=== PATIENT | male | born 1980 | race Caucasian/White ===

== ENCOUNTER 2021-01-19 17:47 | Emergency (ER) | payer MEDICAID ==
[~2021-01-19] VITALS: Ht 188 cm; Wt 88.6 kg
[~2021-01-19 17:47] MED LIST: HYDR-4383 PO; IBUP-75 PO; NO HOME MEDS
[2021-01-19] MEDS ORDERED: naloxone 2mg/2ml inj IV ONE (18:05)
[2021-01-19] MEDS ORDERED: normal saline 1000ML IV soln IVB ONE (18:05)
[2021-01-19] MEDS ORDERED: naloxone 2mg/2ml inj ONE (18:41)
[2021-01-19 18:56] LABS: BASOPHILS # (AUTO) 0.1 X10'3 (0-0.2); BASOPHILS % (AUTO) 0.6 % (0-1); EOSINOPHILS % (AUTO) 0.3 % (0-6); HEMATOCRIT 42.9 % (42.0-52.0); HEMOGLOBIN 14.5 g/dl (14.0-17.9); LYMPHOCYTES # (AUTO) 2.3 X10'3 (1.1-4.8); LYMPHOCYTES % (AUTO) 14.9 % (21-51); MEAN CORPUSCULAR HEMOGLOBIN 29.8 PG (27.0-31.0); MEAN CORPUSCULAR HGB CONC 33.8 g/dL (33.0-36.5); MEAN CORPUSCULAR VOLUME 88.3 FL (78-98); MEAN PLATELET VOLUME 8.9 FL (7.4-10.4); MONOCYTES # (AUTO) 1.8 X10'3 (0-0.9); MONOCYTES % (AUTO) 11.9 % (2-12); NEUTROPHILS # (AUTO) 11.1 X10'3 (1.8-7.7); NEUTROPHILS % (AUTO) 72.3 % (42-75); PLATELET COUNT 334 X10'3 (140-440); RED BLOOD COUNT 4.86 X10'6 (4.70-6.10); RED CELL DISTRIBUTION WIDTH 14.7 % (11.5-14.5); WHITE BLOOD COUNT 15.4 X10'3 (4.5-11.0)
[2021-01-19 19:07] LABS: LACTIC SEPSIS 1.4 MMOL/L (0.4-2.0)
[2021-01-19 19:14] LABS: ALANINE AMINOTRANSFERASE 21 U/L (12-78); ALBUMIN 3.5 G/DL (3.4-5.0); ALBUMIN/GLOBULIN RATIO 0.7 (1.1-1.5); ALKALINE PHOSPHATASE 102 IU/L (46-116); ANION GAP 10 (8-16); ASPARTATE AMINO TRANSFERASE 21 U/L (10-37); BILIRUBIN,TOTAL 0.3 MG/DL (0.1-1.0); BLOOD UREA NITROGEN 19 MG/DL (7-18); BUN/CREATININE RATIO 22.1 (5.4-32.0); CALCIUM 8.9 MG/DL (8.5-10.1); CHLORIDE 100 MMOL/L (99-107); CREATININE 0.86 MG/DL (0.60-1.10); ETHANOL < 0.010 GM/DL (0.0-0.010); GLUCOSE 136 MG/DL (70-104); POTASSIUM 3.6 MMOL/L (3.5-5.1); SODIUM 137 MMOL/L (135-145); TOTAL CARBON DIOXIDE 27.4 MMOL/L (24-32); TOTAL PROTEIN 8.4 G/DL (6.4-8.2); TROPONIN I < 0.04 NG/ML (0.0-0.05); eGFR > 90 ML/MIN
[2021-01-19] MEDS ORDERED: magnesium 2GM in 50ml NS 50 ML IV ONE (19:25)
[2021-01-19] MEDS ORDERED: thiamine inj. 100 MG in normal saline 100ml IV soln 99 ML IV ONE (19:25)
[2021-01-19] MEDS ORDERED: levetiracetam-NS 1000mg/100ml 100 ML IV ONE (19:28)
[2021-01-19 19:37] LABS: CLARITY,URINE CLEAR (Clear); COLOR,URINE YELLOW (Yellow); GLUCOSE, URINE NEGATIVE (Neg); KETONES,URINE 15 mg/dl (Neg); LEUKOCYTE ESTERASE ,URINE NEGATIVE (Neg); NITRITES, URINE NEGATIVE (Neg); OCCULT BLOOD,URINE TRACE-LYSED (Neg); PH,URINE 6.5 (4.8-8.0); PROTEIN,URINE TRACE mg/dl (Neg)
[2021-01-19 19:45] LABS: UA COLLECTION TYPE STRAIGHT CATH
[2021-01-19 19:47] LABS: BACTERIA,URINE NONE SEEN /HPF (Neg); RBC,URINE 0-2 /HPF (0-2); WBC,URINE 0-4 /HPF (0-4)
[2021-01-19 19:48] LABS: MUCUS STRANDS FEW /LPF (Neg); SQUAMOUS EPITHELIAL CELL,UR NONE SEEN /LPF (FEW); URINE AMPHETAMINE SCREEN POSITIVE (Neg); URINE BARBITUATE SCREEN NEGATIVE (Neg); URINE BENZODIAZEPINES SCREEN NEGATIVE (Neg); URINE CANNABINOID SCREEN NEGATIVE (Neg); URINE COCAINE SCREEN NEGATIVE (Neg); URINE METHADONE SCREEN NEGATIVE (Neg); URINE OPIATE SCREEN NEGATIVE (Neg); URINE PHENCYCLIDINE SCREEN NEGATIVE (Neg)
[2021-01-19] MEDS ORDERED: niCARDipine-NS 40mg/200ml IVPB 200 ML IV SCH (19:50)
--- NOTE | 2021-01-19 19:52 | NUR ---
PT PULLED OUT IV LINE, WORKING ON NEW ONE
[2021-01-19 20:33] VITALS: BP 204/99
--- NOTE | 2021-01-19 20:48 | NUR ---
REPORT CALLED TO [facility] TO VINCE STANLEY
== END 2021-01-19 20:58 | disposition short-term general hospital (02) ==
LOC: ER 17:48
DX: I61.4 Nontraumatic intracerebral hemorrhage in cerebellum (principal); Z20.822 Contact with and (suspected) exposure to COVID-19; R41.82 Altered mental status, unspecified; R53.1 Weakness; F12.90 Cannabis use, unspecified, uncomplicated; Z98.890 Other specified postprocedural states; Z72.89 Other problems related to lifestyle; Z79.899 Other long term (current) drug therapy
CPT/HCPCS: 36415; 70450; 71045; 80053; 80305; 80320; 81001; 82140; 83605; 84484; 85025; 85610; 87040; 87635; 93005; 96365; 96367; 96375; 99285; C9803; J1953; J2310; J3475; J7030; 96361; 96368

== ENCOUNTER 2021-03-07 12:40 | Emergency (ER) | payer MEDICAID ==
[~2021-03-07] VITALS: Ht 188 cm; Wt 90.9 kg
[2021-03-07 13:38] VITALS: BP 121/87
--- NOTE | 2021-03-07 14:01 | NUR ---
Pt reports neck pain, 05/16, but not currently, saying, "sometimes my neck hurts bad." He purportedly underwent back and/or neck surgery @ [facility] in the winter of 2019, but he can't recall date. Pt observed moving head and all extremities with no notable limitations.
== END 2021-03-07 16:09 | disposition home or self-care (01) ==
LOC: ER 12:41
DX: Z02.89 Encounter for other administrative examinations (principal); S01.90XD Unspecified open wound of unspecified part of head, subsequent encounter; F12.90 Cannabis use, unspecified, uncomplicated; Z98.890 Other specified postprocedural states; Z72.89 Other problems related to lifestyle; Z79.899 Other long term (current) drug therapy; X58.XXXD Exposure to other specified factors, subsequent encounter
CPT/HCPCS: 99281

== ENCOUNTER 2022-04-20 22:57 | Emergency (ER) | payer MEDICAID ==
[~2022-04-20] VITALS: Ht 188 cm; Wt 90.9 kg
[2022-04-20 23:02] VITALS: BP 167/100
[2022-04-21] MEDS ORDERED: acetaminophen 325mg tablet PO ONE (01:15)
[2022-04-21] MEDS ORDERED: ibuprofen tablet 400 MG TABLET PO ONE (01:15)
--- NOTE | 2022-04-21 02:15 | NUR ---
PO MEDS X2 GIVEN
--- NOTE | 2022-04-21 02:29 | NUR ---
PT NOT IN LOBBY FOR LAB DRAW
== END 2022-04-21 05:01 | disposition left against medical advice (07) ==
LOC: ER 22:58
DX: R25.2 Cramp and spasm (principal); F12.90 Cannabis use, unspecified, uncomplicated; Z56.0 Unemployment, unspecified; Z59.00 Homelessness unspecified
CPT/HCPCS: 99283

== ENCOUNTER → 2022-04-20 | Emergency (ER) | payer MEDICAID ==
[~2022-04-20] VITALS: Ht 188 cm; Wt 81.8 kg
[~2022-04-20] MED LIST changes: -IBUP-75 PO; +IBUP-76 PO
[2022-04-20 19:53] VITALS: BP 175/113
== END | disposition left against medical advice (07) ==
LOC: ER 19:28
DX: G47.62 Sleep related leg cramps (principal); Z53.21 Procedure and treatment not carried out due to patient leaving prior to being seen by health care provider

== ENCOUNTER 2023-10-28 10:28 | Emergency (ER) | payer MEDICAID ==
[~2023-10-28] VITALS: Ht 182.9 cm; Wt 91.8 kg
[~2023-10-28 10:28] MED LIST changes: +IBUP-2632 PO; -IBUP-76 PO
[2023-10-28] MEDS ORDERED: ondansetron 4mg rapidly disintigrating tab PO ONE (11:30)
[2023-10-28 13:49] LABS: BASOPHILS # (AUTO) 0.1 X10'3 (0-0.2); BASOPHILS % (AUTO) 0.6 % (0-1); EOSINOPHILS # (AUTO) 0.1 X10'3 (0-0.9); EOSINOPHILS % (AUTO) 0.8 % (0-6); HEMATOCRIT 47.6 % (42.0-52.0); HEMOGLOBIN 15.6 g/dl (14.0-17.9); LYMPHOCYTES # (AUTO) 2.9 X10'3 (1.1-4.8); LYMPHOCYTES % (AUTO) 17.6 % (21-51); MEAN CORPUSCULAR HEMOGLOBIN 29.7 PG (27.0-31.0); MEAN CORPUSCULAR HGB CONC 32.8 g/dL (33.0-36.5); MEAN CORPUSCULAR VOLUME 90.7 FL (78-98); MEAN PLATELET VOLUME 9.7 FL (7.4-10.4); MONOCYTES # (AUTO) 1.5 X10'3 (0-0.9); MONOCYTES % (AUTO) 9.3 % (2-12); NEUTROPHILS # (AUTO) 11.7 X10'3 (1.8-7.7); NEUTROPHILS % (AUTO) 71.7 % (42-75); PLATELET COUNT 156 X10'3 (140-440); RED BLOOD COUNT 5.25 X10'6 (4.70-6.10); WHITE BLOOD COUNT 16.3 X10'3 (4.5-11.0)
[2023-10-28 14:04] VITALS: TEMP 98.1
[2023-10-28 14:05] LABS: ALANINE AMINOTRANSFERASE 15 U/L (12-78); ALBUMIN 3.6 G/DL (3.4-5.0); ALBUMIN/GLOBULIN RATIO 0.9 (1.1-1.5); ALKALINE PHOSPHATASE 87 IU/L (46-116); ANION GAP 12 (8-16); ASPARTATE AMINO TRANSFERASE 18 U/L (10-37); BILIRUBIN,TOTAL 0.5 MG/DL (0.1-1.0); BLOOD UREA NITROGEN 17 MG/DL (7-18); BUN/CREATININE RATIO 21.3 (10.0-20.0); CALCIUM 9.2 MG/DL (8.5-10.1); CHLORIDE 100 MMOL/L (99-107); GLUCOSE 102 MG/DL (70-104); LIPASE 21 U/L (16-77); POTASSIUM 3.9 MMOL/L (3.5-5.1); SODIUM 135 MMOL/L (135-145); TOTAL CARBON DIOXIDE 23.1 MMOL/L (24-32); TOTAL PROTEIN 7.8 G/DL (6.4-8.2); eCRCL 139 ML/MIN; eGFR > 90 ML/MIN
[2023-10-28] MEDS ORDERED: ONDA4TAB12 PO (15:22)
[2023-10-28 15:33] VITALS: BP 155/104; PULSE 64; RESP 18; O2SAT 99
[2023-10-28 16:12] LABS: BILIRUBIN,URINE SMALL (Neg); CLARITY,URINE SLIGHTLY CLOUDY (Clear); COLOR,URINE YELLOW (Yellow); GLUCOSE, URINE NEGATIVE (Neg); KETONES,URINE 40 mg/dl (Neg); LEUKOCYTE ESTERASE ,URINE NEGATIVE (Neg); NITRITES, URINE NEGATIVE (Neg); OCCULT BLOOD,URINE NEGATIVE (Neg); PH,URINE 6.5 (4.8-8.0); PROTEIN,URINE NEGATIVE (Neg); UROBILINOGEN,URINE 0.2 E.U/dL (0.2-1.0)
[2023-10-28 16:14] LABS: UA COLLECTION TYPE CLN CATCH MIDSTREAM
[2023-10-28 16:16] LABS: MUCUS STRANDS MANY /LPF (Neg); SQUAMOUS EPITHELIAL CELL,UR FEW /LPF (FEW)
[2023-10-28 16:17] LABS: BACTERIA,URINE NONE SEEN /HPF (Neg); RBC,URINE 0-2 /HPF (0-2); WBC,URINE 0-4 /HPF (0-4)
== END 2023-10-28 15:39 | disposition home or self-care (01) ==
LOC: ER 10:28
DX: A08.4 Viral intestinal infection, unspecified (principal); F12.90 Cannabis use, unspecified, uncomplicated; Z79.899 Other long term (current) drug therapy; Z79.1 Long term (current) use of non-steroidal anti-inflammatories (NSAID)
CPT/HCPCS: 36415; 80053; 81001; 83690; 85025; 99283

== ENCOUNTER 2024-12-21 10:25 | Emergency (ER) | payer MEDICAID ==
[~2024-12-21] VITALS: Ht 188 cm; Wt 95.5 kg
[~2024-12-21 10:25] MED LIST changes: +ONDA-243 PO
[2024-12-21 10:38] VITALS: BP 119/81; PULSE 92; RESP 15; TEMP 97.8; O2SAT 100
== END 2024-12-21 16:27 | disposition left against medical advice (07) ==
LOC: ER 10:26
DX: K08.89 Other specified disorders of teeth and supporting structures (principal); Z53.21 Procedure and treatment not carried out due to patient leaving prior to being seen by health care provider

== ENCOUNTER 2025-03-12 15:12 | Emergency (ER) | payer MEDICAID ==
[~2025-03-12] VITALS: Ht 188 cm; Wt 97.1 kg
[2025-03-12 15:13] VITALS: BP 133/101; PULSE 84; RESP 16; TEMP 97.9; O2SAT 100
--- NOTE | 2025-03-12 17:53 | Physician Documentation ---
History of Present Illness ~ Chief Complaint: Abscess Stated Complaint: R WRIST PAIN Time Seen by MD: 16:38 Primary Medical Doctor: NONE HPI Patient is seen today with complaints of an abscess developing on his right wrist ulnar aspect just over the ulnar styloid. Patient states it just popped up yesterday and wants it checked out. Patient has no new or other concern or complaint at this time. Patient denies any joint pain and denies any fevers or chills. He has no other concern or complaint at this time. Tetanus Within 5 Years: No (Unsure) Medication Reconciliation Allergies: Coded Allergies: No Known Allergies (Unverified , 03/12/25) Scheduled Hydrocodone/Acetaminophen ([place] 5-325 Tablet), 1-2 TABLET PO Q6H Ibuprofen (Ibuprofen Ib), 800 APPLIC PO Q8 hrs Scheduled PRN ONDANSETRON ODT 4mg tablet (Ondansetron Odt), 1 TAB PO Q6H PRN PRN for nausea/vomiting Miscellaneous Medications Home Med List (No Home Medications), (Reported) Past Medical History Past Medical History: CVA/TIA/Stroke Past Surgical History: orthopedic surgeries, other Patient History: (Cancer) Malignant carcinoid tumor FATHER, Onset:50's - 60 (DM Type 2) Diabetes mellitus type 2 FAMILY/OTHER (PVD) Peripheral vascular disease Alcohol Use: Occasionally Drug Use: marijuana Lives In: Homeless Occupation: unemployed Review of Systems Constitutional: Denies: chills, fever, weakness Eyes: Denies: pain, blurred vision ENT: Denies: ear pain, nose pain, throat pain, mouth pain Respiratory: Denies: cough, shortness of breath Cardiovascular: Denies: chest pain, palpitations Gastrointestinal: Denies: abdominal pain, nausea, vomiting Genitourinary: Denies: burning, dysuria Male Genitalia: Denies: penile discharge, testicular pain Neurological: Denies: headache, dizziness Musculoskeletal: Denies: pain, swelling Integumentary: Denies: rash, lesions Allergic/Immunologic: Denies: hives, itching Hematologic/Lymphatic: Denies: no symptoms reported Psychiatric: Denies: depression, anxiety Physical Exam Vital Signs: Temperature: 97.9, Source: Oral, Heart Rate: 84, Respiratory Rate: 16, BP: 133/101, Pulse Oximetry: 100, Weight: 97.100 Oxygen Flow Rate: 0 Physical Exam General: Awake and Alert, no acute distress. HEENT: Conjunctiva pink, Sclera clear, Mucus Membranes moist. Neck: Supple without masses and tenderness. Resp: Unlabored. Lungs clear to auscultation bilaterally. Heart: Regular Rate and rhythm, normal S1 and S2 without murmur, rub or gallop. Musculoskeletal: Patient on exam does have skin lesion consistent with the abscess with pustule formation and purulent drainage with surrounding induration and erythema of the right upper extremity and located over the olecranon process of the right wrist. I do not appreciate any wrist swelling or joint swelling or tracking up the right arm. Extremities: No cyanosis,clubbing or edema. Skin: Warm and Dry. Progress Results/Orders Results/Orders Vital Signs 03/12/25 15:13 Temp 97.9 Pulse 84 Resp 16 B/P (MAP) 133/101 Pulse Ox 100 O2 Flow Rate 0 Medical Decision Making Findings Patient is seen today with complaints of an abscess developing on his right wrist ulnar aspect just over the ulnar styloid. Patient states it just popped up yesterday and wants it checked out. Patient has no new or other concern or complaint at this time. Patient denies any joint pain and denies any fevers or chills. He has no other concern or complaint at this time. Patient did have incision and drainage of abscess over right wrist ulnar aspect. Patient tolerated well. Patient started on Bactrim DS in the ED tonight. Prescription sent to patient's pharmacy [facility] on [facility] of Bactrim DS one tab by mouth twice a day for 10 days. Patient will follow up with primary care in 2-5 days if no better as needed sooner. Return to ED with any worsening, concerning or changing symptoms. Shared decision-making utilized with the patient today. Departure Disposition: HOME / SELF CARE / HOMELESS Impression: Primary Impression: Abscess Condition: Improved Discharge Instructions: Abscess, Care After, Incision and Drainage Additional Instructions: Patient did have incision and drainage of abscess over right wrist ulnar aspect. Patient tolerated well. Patient started on Bactrim DS in the ED tonight. Prescription sent to patient's pharmacy [facility] on [facility] of Bactrim DS one tab by mouth twice a day for 10 days. Patient will follow up with primary care in 2-5 days if no better as needed sooner. Return to ED with any worsening, concerning or changing symptoms. Shared decision-making utilized with the patient today. Referrals: NO PRIMARY CARE PROVIDER (PCP) Prescriptions Sulfamethoxazole/Trimethoprim (Bactrim Ds Tablet) 800 Mg-160 Mg Tablet 1 TAB PO Q12H for 10 Days, #20 TAB Prov: JOSE DASILVA 03/12/25 Signature Scribe Signature: No scribe Attestation: No scribe JOSE DASILVA PAC Mar 12, 2025 17:53
[2025-03-12] MEDS ORDERED: SULF1TAB49 PO (18:41)
[2025-03-12] MEDS: sulfamethoxazole/trimethoprim DS (800/160mg) tablet PO STA (18:53)
== END 2025-03-12 19:03 | disposition home or self-care (01) ==
LOC: ER 15:13
DX: L02.413 Cutaneous abscess of right upper limb (principal); F12.90 Cannabis use, unspecified, uncomplicated; Z79.899 Other long term (current) drug therapy; Z86.73 Personal history of transient ischemic attack (TIA), and cerebral infarction without residual deficits; Z59.00 Homelessness unspecified; Z56.0 Unemployment, unspecified
CPT/HCPCS: 10060; 99284; A6449

== ENCOUNTER 2025-08-15 08:02 | Emergency (ER) | payer MEDICAID ==
[~2025-08-15] VITALS: Ht 188 cm; Wt 96.0 kg
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
[2025-08-15] MEDS: HYDROcodone/acetaminophen 10/325mg tab PO STA (08:18)
[2025-08-15] MEDS: LIDOcaine 1% W/epiNEPHrine 1:100,000 20ml vial IJ STA (08:19)
--- NOTE | 2025-08-15 08:49 | RADIOLOGY REPORT ---
CLINICAL INFORMATION: 45 years old, Male; ELBOW PAIN. TECHNIQUE: 3 views of the left elbow were obtained. COMPARISON: None FINDINGS: No acute fracture or dislocation. Small ossific density adjacent to the lateral epicondyle near the expected origin of the common extensor tendon, possible sequela of avulsion injury or tendinopathy. Possible spurring at the articular surface of the capitellum. No significant joint effusion. There is soft tissue swelling overlying the olecranon with multiple superficial small calcific densities. IMPRESSION: 1. No acute bony abnormality. 2. Ossific density adjacent to the lateral epicondyle, may be sequelae of avulsion injury or tendinopathy. 3. Possible spurring at the articular surface of the capitellum. 4. Soft tissue swelling with multiple small superficial calcifications overlying the olecranon.
[2025-08-15] MEDS: TETanus/Pertussis (Acell)/Diphther VAC/PF (Tdap-Adult) 0.5ml syringe IMVAC ONE (10:08)
[2025-08-15 11:20] VITALS: BP 144/95; PULSE 80; RESP 16; O2SAT 95
[2025-08-15 11:38] VITALS: TEMP 97.4
[2025-08-15] MEDS ORDERED: HYDR-3965 PO (11:39)
== END 2025-08-15 11:39 | disposition home or self-care (01) ==
LOC: ER 08:03
DX: S01.01XA Laceration without foreign body of scalp, initial encounter (principal); S51.012A Laceration without foreign body of left elbow, initial encounter; W22.09XA Striking against other stationary object, initial encounter; Y93.89 Activity, other specified; Y92.89 Other specified places as the place of occurrence of the external cause; Y99.8 Other external cause status
CPT/HCPCS: 12002; 29105; 73080; 90471; 90715; 99283; A6223; A4565; A6258; A6446; A6449

== ENCOUNTER 2025-08-16 14:15 | Inpatient (IN) | payer MEDICAID ==
[~2025-08-16] VITALS: Ht 188 cm; Wt 89.0 kg
[~2025-08-16 14:15] MED LIST changes: +HYDR-3965 PO
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
[2025-08-16] MEDS: HYDROcodone/acetaminophen 5mg/325mg tablet PO ONE (21:50)
[2025-08-16 22:00] LABS: MEAN PLATELET VOLUME 9.4 FL (7.4-10.4); RED CELL DISTRIBUTION WIDTH 13.7 % (11.5-14.5)
[2025-08-16 22:09] LABS: CREATININE 1.07 MG/DL (0.60-1.10); TOTAL CARBON DIOXIDE 25.7 MMOL/L (24-32); eCRCL 100 ML/MIN; eGFR 74 ML/MIN
[2025-08-16] MEDS ORDERED: magnesium hydroxide 30ml (MOM) UD suspension PO PRN (22:35)
[2025-08-16] MEDS ORDERED: magnesium sulf-water 4G/100mL 100 ML IV PRN (22:35)
[2025-08-16] MEDS ORDERED: ondansetron/PF 4mg/2ml inj IV PRN (22:35)
[2025-08-16] MEDS ORDERED: magnesium Cl slow-release 64mg tablet PO PRN (22:35)
[2025-08-16] MEDS ORDERED: mag hydrox/Alum hydrox/simeth 30ml oral suspension PO PRN (22:35)
[2025-08-16] MEDS ORDERED: potassium Cl 20 mEq SR tablet PO PRN (22:35)
[2025-08-16] MEDS ORDERED: potassium Cl 40MEQ/1/2NS 520ml 520 ML IV PRN (22:35)
[2025-08-16] MEDS ORDERED: magnesium sulf-water 2g/50mL 50 ML IV PRN (22:35)
[2025-08-16 23:43] LABS: APTT 27 SECONDS (22-32); INR 1.2 INR
[2025-08-17] VITALS (7 sets, daily range): BP systolic 93–152; BP diastolic 54–97; PULSE 61–116; RESP 12–18; TEMP 98.7–102.8; O2SAT 96–100
[2025-08-17] MEDS: normal saline 1000ml 1,000 ML IV SCH (00:17)
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
[2025-08-17 01:34] LABS: ETHANOL < 10 MG/DL (<10); PRO BRAIN NATRIURETIC PEPTIDE 429 PG/ML (0-125)
--- NOTE | 2025-08-17 03:23 | RADIOLOGY REPORT ---
CHEST RADIOGRAPH Indication: sob Technique: Single frontal view of the chest was obtained Comparison: CHEST,SINGLE VIEW on DOS: 01/19/21 IMPRESSION: Heart appears normal in size. The lungs appear clear without focal airspace opacity, effusion, or pneumothorax. Right IJ catheter tip in the cavoatrial junction.
[2025-08-17 04:55] LABS: MEAN PLATELET VOLUME 9.9 FL (7.4-10.4); RED CELL DISTRIBUTION WIDTH 13.8 % (11.5-14.5)
[2025-08-17 05:06] LABS: LEUKOCYTE ESTERASE ,URINE NEGATIVE (Neg); NITRITES, URINE NEGATIVE (Neg); OCCULT BLOOD,URINE NEGATIVE (Neg)
[2025-08-17 05:09] LABS: CHOL/HDL RATIO 3.1 (0.00-4.99); CREATININE 1.08 MG/DL (0.60-1.10); LDL CHOLESTEROL 70 MG/DL (50-100); TOTAL CARBON DIOXIDE 29.8 MMOL/L (24-32); eCRCL 99 ML/MIN; eGFR 74 ML/MIN
[2025-08-17 05:09] LABS: UA COLLECTION TYPE NON-SPECIFIED
[2025-08-17 05:13] LABS: AMORPHOUS URATES 1+; MUCUS STRANDS FEW /LPF (Neg); SQUAMOUS EPITHELIAL CELL,UR FEW /LPF (FEW)
[2025-08-17 05:15] LABS: URINE AMPHETAMINE SCREEN POSITIVE (Neg); URINE BARBITUATE SCREEN NEGATIVE (Neg); URINE BENZODIAZEPINES SCREEN NEGATIVE (Neg); URINE CANNABINOID SCREEN NEGATIVE (Neg); URINE COCAINE SCREEN NEGATIVE (Neg); URINE METHADONE SCREEN NEGATIVE (Neg); URINE OPIATE SCREEN NEGATIVE (Neg); URINE PHENCYCLIDINE SCREEN NEGATIVE (Neg)
[2025-08-17] MEDS: K and/or MAG REPLACEMENT MC SCH (08:00)
--- NOTE | 2025-08-17 08:31 | PROGRESS NOTE ---
Daily Progress Note Providers to CC Notably in the bed, pain well controlled ~ Central Line/PICC still needed: No Munoz-Non Protocol Munoz Indications Met/Not Met: F/C Indications Not Met Antibiotic Timeout Antibiotic Ordered?: Yes MRSA Education MRSA Education Provided to pt: Yes Subjective As above Objective Vital Signs Date Time Temp Pulse Resp B/P (MAP) Pulse Ox O2 Delivery O2 Flow Rate FiO2 08/17/25 06:00 90 08/17/25 06:00 98.7 14 152/97 (115) 100 High Flow Nasal Cannula 0.0 Vital signs, stable ,afebrile. Pulse Oximetry reflects adequate oxygenation. BMI is General: well developed, well nourished. Awake , alert, and oriented x4, resting comfortably in the bed, in no acute distress . Skin: Warm, dry, no pallor, no rash or petechiae. HEENT: Atraumatic, normocephalic, EOMI, anicteric sclera B; pink conjunctiva; PERRLA, normal oropharynx, moist oral and nasal mucosa. Tympanic membrane , nose , throat clear. Dressing clean dry intact Neck: Trachea midline. Supple, full range of motion, no JVD, bruit , hepatojugular reflex , lymphadenopathy or masses, or other lesions Cardiac: Regular rhythm, regular rate no murmurs, rubs, or gallops. Normal S1 and S2, no S3 noticed. PMI is normal. Respiratory: Equal breath sounds bilaterally, no tachypnea; lungs clear to auscultation bilaterally, no wheezing ,rub or rales, or crackles. Chest wall is symmetric and without deformity. No signs of trauma. Chest wall is nontender. No signs of respiratory distress. Resonance is normal upon percussion bilaterally. Gastrointestinal: Abdomen symmetric, non-distended, soft, non-tender, normal bowel sounds x4 quadrant, normoactive, no hepatosplenomegaly , no masses , no bruit, no flank pain bilaterally. No voluntary guarding, rebound, or rigidity. No tenderness to percussion. No pulsatile masses. Equal femoral pulses. No Kent's sign or McBurney point tenderness. Back; no CVA tenderness bilaterally, no deformities. Neck and back are without deformity as well. No tenderness noted on palpation of the spinous processes. Spinous processes are midline. Cervical, thoracic, and lumbar paraspinal muscles are not tender and are without spasm. : normal external genitalia, without lesions, swelling, masses or tenderness. Musculoskeletal: Extremities, normal range of motion, non-tender, muscle strength 5/5 x 4. Negative Homans signs bilaterally on lower extremity. Distal pulses full symmetrical, no clubbing, cyanosis , edema. Neurological: Speech is clear, alert, and oriented x 4. No motor or sensory deficit, deep tendon reflexes normal, cerebellar intact. Cranial nerves II-XII intact. Psych: Alert and or appropriate, normal affect. Vascular: Good distal pulses, which are equal x4; capillary refill less than 2 seconds. Lymphatic, no lymphadenopathy. Result Diagram: [id number] Coagulation Studies Laboratory Tests Test 08/16/25 23:11 Prothrombin Time 12.3 SECONDS (9.0-12.0) H INR International Normalized Ratio 1.2 INR Activated Partial Thromboplast Time 27 SECONDS (22-32) Coagulation Comments Problem\Assessment\Plan Plan Diplopia under evaluation likely postconcussion syndrome Can not rule out stroke ?History of acute CVA Started the patient on aspirin 81 mg, atorvastatin [address] head ruled out any hemorrhage. MRI with and without contrast per Neurology recommendation. Canceled secondary to metal clips in the skull Carotid ultrasound, echocardiogram, Speech evaluation, physical therapy pending. Continue telemetry monitoring Sepsis, unknown source (tachycardia, elevated WBC count) Likely secondary to leukemia versus sepsis of unknown origin(UTI/pneumonia) [place] [address]. Baseline [place] was 78357 last year. ESR is slightly elevated at 25 and procalcitonin was slightly elevated at 0.24, lactic acid is within normal limits. Blood cultures, UA and chest x-ray are pending. Follow up. Empirically started on Zosyn and IV fluids NS at the rate of 100 mL/hour. Patient may need hematology workup for leukemia as an outpatient if source of leukocytosis is not found. [place] on left side of head Sutures on the left elbow covered with bandage Wound care consult and dressing changes. Nursing Skin check for possible source of sepsis Chronic amphetamine abuse including currently Acute amphetamine intoxication History of homelessness Code Status: Full code DVT Prophylaxis: Heparin Analgesia/Sedation: [place] Lines/Tubes: PIV Gi Prophylaxis: None Nutrition: Regular diet after speech evaluation PT: Yes Prognosis: Guarded Sepsis Screening Reassessment Date: Aug 17, 2025 Date of Service: Aug 17, 2025 Billing Provider: SAM ALATORRE MD Common Visit Codes: 63251-[id number] INP/OBS CARE(HIGH) SAM ALATORRE MD Aug 17, 2025 08:31
--- NOTE | 2025-08-17 08:53 | RADIOLOGY REPORT ---
DATE OF SERVICE: 08/16/2025 02:35 PM REASON FOR EXAM: Double Vision COMPARISON: CT HEAD on DOS: 01/19/21 DOSE: CTDI measures 67.4 Technique: Multiplanar CT images of the brain were obtained. No IV contrast was administered. Findings: Right cerebellar encephalomalacia with underlying craniectomy defect. There is 4.6 x 1.4 cm fluid collection overlying the craniectomy bed. Right frontal ASSESSMENT NURSE shunt catheter in place. No evidence for hydrocephalus. No acute intracranial hemorrhage. No midline shift. Basal cisterns are patent. The visualized paranasal sinuses are clear. The mastoid air cells are clear. IMPRESSION: Right cerebellar encephalomalacia with underlying craniectomy defect. There is 4.6 x 1.4 cm fluid collection overlying the craniectomy bed. Correlate for Possible pseudomeningocele. Right frontal ASSESSMENT NURSE shunt catheter in place. No hydrocephalus. No acute intracranial hemorrhage. IN PEREZ
[2025-08-17] MEDS: aspirin 81mg, enteric-coated 1 TAB TABLET.DR PO SCH (09:26)
[2025-08-17] MEDS: heparin, porcine 5000 units/ml vial SQ SCH (09:27)
[2025-08-17] MEDS: docusate sod 100mg capsule PO SCH (09:27)
--- NOTE | 2025-08-17 09:48 | VASCULAR REPORT ---
Carotid Duplex Date: 08/17/2025 07:37 AM Clinical History: Diplopia Comparison: None Technique: Duplex Doppler evaluation of the extracranial carotid and vertebral arteries including color Doppler and spectral/pulsed waveform analysis was performed. Findings: Doppler Spectral Velocity Analysis Right Left pCCA 109/16 cm/s pCCA 144/33 cm/s dCCA 108/36 cm/s dCCA 111/35 cm/s ECA 98/ cm/s ECA 151/ cm/s pICA 102/27 cm/s pICA 120/53 cm/s Z[place]ry 87/41 cm/s Zachary 101/41 cm/s dICA 90/39 cm/s dICA 109/46 cm/s Vert 0/ cm/s Vert. 83/36 cm/s Subcl. 104/ cm/s Subcl. 166/cm/s ICA/CCA 0.94 ICA/CCA 1.08 Real-Time B-Mode Imaging Area Findings Right Left CCA Plaque Composition Intimal thickening Intimal thickening BIF Plaque Composition Heterogeneous Heterogeneous Plaque Description Irregular Smooth ICA Plaque Composition Intimal thickening Heterogeneous Plaque Description Smooth ECA Plaque Composition Intimal thickening Intimal thickening Vertebral Occluded Antegrade Subclavian Multiphasic Multiphasic CONCLUSION <50% stenosis detected in the Internal Carotid Arteries bilaterally. <50% stenosis detected in the bilateral External Carotid Arteries and bilateral Common Carotid Arteries. No flow detected in the right Vertebral Artery. Antegrade flow noted in the left Vertebral Artery. Multiphasic waveforms noted in the bilateral Subclavian Arteries.
[2025-08-17] MEDS: potassium Cl 20 mEq SR tablet PO PRN (10:03)
[2025-08-17] MEDS: HYDROcodone/acetaminophen 5mg/325mg tablet PO PRN (10:04)
[2025-08-17] MEDS: piperacillin/tazo 3.375gm/50ml 50 ML IV SCH (11:02)
--- NOTE | 2025-08-17 12:38 | RADIOLOGY REPORT ---
Indication: Skull 2v x-ray please recommended by MRI suite Technique: DI SKULL LIMITED LESS 4 [facility] Comparison: None FINDINGS/IMPRESSION: Right-sided ventriculoperitoneal catheter. Surgical clips in the left scalp region. No acute fracture identified.
--- NOTE | 2025-08-17 17:31 | CARDIOLOGY REPORT ---
APPROVED REPORT EXAM: Comprehensive 2D, Doppler, and color-flow Echocardiogram. Patient Location: [facility] Heart Rate: 89 bpm Rhythm: NSR Indications CVA Smoker PIECE DYER: Paolo. PRIOR ECHOCARDIOGRAM: None 2D Dimensions RVDd 3.2 cm IVSd 1.2 (0.7-1.1cm) LVDd 4.6 cm PWd 1.2 (0.7-1.1cm) IVSs 1.5 (0.8-1.2cm) LVDs 3.3 (2.5-4.0cm) PWs 1.3 (0.8-1.2cm) LVOT Diameter 2.04 (1.8-2.4cm) LVEF(%) 55.0 (>50%) FS (%) 27.3 % SV 51.9 ml CO 4.4 L/min M-Mode Dimensions Left Atrium(MM) 4.36 (2.5-4.0cm) Aortic Root 3.92 (2.2-3.7cm) Aortic Cusp Exc 2.64 (1.5-2.0cm) Aortic Valve AoV Peak Americo. 122.7 cm/s AoV VTI 14.6 cm AO Peak GR. 6.0 mmHg AO Mean GR. 3 mmHg LVOT VTI 16.26 cm LVOT Peak Americo. 92.3 cm/s ANGELES(VTI)/BSA 3.62 cm2/m2 ANGELES (VTI) 3.62 cm2 AV DI 1.11 % Mitral Valve MV E Velocity 67.9 cm/s MV Peak Gr. 2 mmHg MV A Velocity 64.4 cm/s MV PHT 48 ms E/A Ratio 1.1 MVA (PHT) 4.58 cm2 MV VMax 71.8 cm/s LEFT VENTRICLE Normal LV size and function. Mild concentric hypertrophy. Overall LVEF is 55-60%. RIGHT VENTRICLE Right ventricle is borderline dilated. The right ventricular systolic function is normal. ATRIA Left atrium is mildly dilated. Right atrium is mildly dilated. AORTIC VALVE Trileaflet AV appears mildly sclerotic without stenosis. No insufficiency. MITRAL VALVE Moderate mitral annular calcification without stenosis. TRICUSPID VALVE The tricuspid valve is normal in structure. No regurgitation PULMONIC VALVE Pulmonic valve is not well visualized. GREAT VESSELS Aortic root is mildly dilated. Ascending aorta is mildly dilated. The IVC is normal in size and collapses >50% with inspiration. PERICARDIUM Normal pericardium. No effusion. Other Information Study Quality: Adequate Technically limited study due to echo done supine Conclusion Overall LVEF is 55-60%. Normal LV size and function. Mild concentric hypertrophy. Right ventricle is borderline dilated. The right ventricular systolic function is normal. Trileaflet AV appears mildly sclerotic without stenosis. No insufficiency. Moderate mitral annular calcification without stenosis. The tricuspid valve is normal in structure. No regurgitation Normal pericardium. No effusion.
[2025-08-18] MEDS: nicotine 7mg patch - 24hr TD SCH (04:58)
[2025-08-18 06:00] VITALS: BP 106/70; PULSE 70; RESP 18; TEMP 98.6; O2SAT 97
[2025-08-18 06:06] LABS: MEAN PLATELET VOLUME 10.0 FL (7.4-10.4); RED CELL DISTRIBUTION WIDTH 13.5 % (11.5-14.5)
[2025-08-18 06:39] LABS: CREATININE 1.07 MG/DL (0.60-1.10); TOTAL CARBON DIOXIDE 24.9 MMOL/L (24-32); eCRCL 100 ML/MIN; eGFR 74 ML/MIN
[2025-08-18 09:01] LABS: EOSINOPHILS % (MANUAL) 1.0 % (0-6); LYMPHOCYTES % (MANUAL) 8.0 % (21-51); MONOCYTES % (MANUAL) 17.0 % (2-12); NEUTROPHILS % (MANUAL) 74.0 % (42-75); PLATELET ESTIMATE DECREASED
--- NOTE | 2025-08-18 09:07 | RADIOLOGY REPORT ---
EXAM: DI HUMERUS (2VWS) CLINICAL INDICATION: source of infection/wound/pain TECHNIQUE: DI HUMERUS (2VWS) Comparison: DI ELBOW, COMPLETE (3VW MIN) on DOS: 08/15/25 FINDINGS/IMPRESSION: There is no evidence of acute fracture or dislocation. The visualized joint space is well maintained. The alignment is anatomical. There is no radiopaque foreign body.
--- NOTE | 2025-08-18 09:08 | RADIOLOGY REPORT ---
EXAM: DI FOREARM,INCL.ONE JOINT CLINICAL INDICATION: SOURCE OF INFECTION/WOUND TECHNIQUE: DI FOREARM,INCL.ONE JOINT Comparison: DI HUMERUS (2VWS) on DOS: 08/18/25, DI ELBOW, COMPLETE (3VW MIN) on DOS: 08/15/25 FINDINGS/IMPRESSION: There is no evidence of acute fracture or dislocation. The visualized joint space is well maintained. The alignment is anatomical. There is no radiopaque foreign body.
--- NOTE | 2025-08-18 09:11 | RADIOLOGY REPORT ---
CLINICAL INDICATION: pain; SOURCE OF INFECTION WOUND TECHNIQUE: 2 radiographic views of the left hand were obtained. 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
[2025-08-18 10:00] VITALS: BP 112/72; PULSE 97; RESP 17; TEMP 97.2; O2SAT 98
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
== END 2025-08-18 11:30 | disposition left against medical advice (07) | DRG 82 ==
LOC: ER 14:16 → ED HOLD 22:47 → EDBEDREQSVC 08-17 00:13 → EDBEDREQ 08-17 00:13 → ORTHO 4S 08-17 01:37
PROVIDERS: ADMIT Internal Medicine; ATTEND Family Medicine
PROC: 5A0935A Assistance with Respiratory Ventilation, Less than 24 Consecutive Hours, High Flow/Velocity Cannula (ICD-10-PCS; principal; 2025-08-17)
DX: H53.2 Diplopia (principal); F07.81 Postconcussional syndrome; Z59.00 Homelessness unspecified; S01.01XA Laceration without foreign body of scalp, initial encounter; F15.129 Other stimulant abuse with intoxication, unspecified; D72.829 Elevated white blood cell count, unspecified; M79.602 Pain in left arm; Z53.29 Procedure and treatment not carried out because of patient's decision for other reasons; Z86.73 Personal history of transient ischemic attack (TIA), and cerebral infarction without residual deficits; Y08.89XA Assault by other specified means, initial encounter; Y93.89 Activity, other specified; Y92.89 Other specified places as the place of occurrence of the external cause; Y99.8 Other external cause status
CPT/HCPCS: 36415; 70250; 70450; 71045; 73060; 73090; 73120; 80048; 80053; 80061; 80076; 80305; 80320; 81001; 83036; 83605; 83735; 83880; 84145; 84443; 84484; 85007; 85025; 85610; 85651; 85730; 86140; 87040; 87081; 93306; 93880; 97161; 97530; 99285; A6258; G0378; J1644; J2543; J7030